=== PATIENT | male | born 1960 | race Caucasian/White ===

== ENCOUNTER 2021-07-23 11:56 | Emergency (ER) | payer OTHER, MEDICARE ==
--- NOTE | 2021-07-23 13:47 | CR ---
Indication: Injury, pain Technique: Left knee 3 views Comparison: None Findings: Mild degenerative spurring present. No joint effusion. Narrowing of the lateral facet of the patellofemoral joint. Impression: Mild tricompartmental degenerative joint disease. No sign of acute injury. Dictated by Angelito Pablo MD @ 07/23/2021 1:44:52 PM (Electronically Signed)
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
== END 2021-07-23 15:10 | disposition home or self-care (01) ==
LOC: MW.ED 11:56
DX: S80.212A Abrasion, left knee, initial encounter (principal); W22.8XXA Striking against or struck by other objects, initial encounter
CPT/HCPCS: 73562-26-LT; 73562-LT; 99283-25